=== PATIENT | female | born 1950 | race Caucasian/White ===

== ENCOUNTER → 2020-04-17 | Outpatient (CLI) | payer OTHER | LOC: CAT 15:03 | PROVIDERS: ATTEND Orthopaedic Surgery Sports Medicine | DX: M19.011 Primary osteoarthritis, right shoulder (principal) ==

== ENCOUNTER → 2020-07-18 | Outpatient (CLI) | payer OTHER ==
[2020-07-18 13:25] LABS: HEMATOCRIT 44.3 % (37.0-47.0); HEMOGLOBIN 14.3 gm/dL (12.0-15.0); MCH 29.9 pg (26.0-34.0); MCHC 32.4 g/dL (28.0-37.0); MCV 92.3 fL (80.0-100.0); RBC 4.8 mil/uL (4.20-5.00); RDW 12.5 % (10.5-14.5); WBC 13.4 thou/uL (4.0-11.0)
[2020-07-18 13:35] LABS: CALCIUM 9.8 mg/dL (8.5-10.1); CREATININE 1.9 mg/dL (0.6-1.0); POTASSIUM 3.9 mmol/L (3.5-5.1)
[2020-07-18 13:42] LABS: PROTIME 10.4 Seconds (9.3-11.4)
[2020-07-18 13:44] LABS: URINE BILIRUBIN NEGATIVE (Negative); URINE BLOOD NEGATIVE (Negative); URINE CLARITY CLEAR; URINE COLOR YELLOW; URINE GLUCOSE-RANDOM* NEGATIVE (Negative); URINE KETONES NEGATIVE (Negative); URINE LEUKOCYTES-REFLEX TRACE (Negative); URINE NITRITE-REFLEX NEGATIVE (Negative); URINE PROTEIN (DIPSTICK) NEGATIVE (Negative); URINE UROBILINOGEN 0.2 E.U./dl (0.2-1.0)
--- NOTE | 2020-07-19 07:06 | EKG ---
[address] [place] [employer] [place] [address] ELECTROCARDIOGRAM REPORT Name: CHASE CASANOVA Room #: REG CLOxana Josue#: [id number] Admission: 07/18/20 Attend Phys: Real Bliss Discharge: Date of : 54 Report #: [id number] [facility] Test Date: 2020-07-18 Test Time: 13:25:45 Pat Name: CHASE CASANOVA Department: Room: Gender: F [employer] Mach[employer] Outside: RICKEY THRASHER : 1950 Requested By: Real Linares Order Number: [id number] MD: Horacio Walters Measurements Intervals [place] Rate: 93 P: 69 AR: 195 QRS: 46 QRSD: 94 T: 60 QT: 375 QTc: 467 Interpretive Statements Sinus rhythm Consider left atrial enlargement Baseline wander in lead(s) I,aVL No previous ECG available for comparison Electronically Signed On 07-19-2020 7:06:02 GRAIN [employer] by Horacio Walters [email or web address] <ELECTRONICALLY SIGNED> By: Horacio Walters MD, [facility] 07/19/20 0706 1325 1325 Horacio Walters MD, FACC /EPI
== END ==
LOC: LAB 09:01
PROVIDERS: ATTEND Orthopaedic Surgery Sports Medicine
DX: Z01.812 Encounter for preprocedural laboratory examination (principal); Z20.822 Contact with and (suspected) exposure to COVID-19; I49.9 Cardiac arrhythmia, unspecified